=== PATIENT | male | born 1935 | race Caucasian/White ===

== ENCOUNTER 2019-05-31 15:59 | Inpatient (IN) | payer OTHER, MEDICAID ==
[~2019-05-31] VITALS: Ht 182.9 cm; Wt 43.1 kg
[2019-05-31 16:06] VITALS: BP_SYST 118
[2019-05-31 17:39] LABS: MONOCYTES # (AUTO) 0.6 K/uL (0.0-1.0); RED CELL DISTRIBUTION WIDTH 15.1 % (9.0-15.0); WHITE BLOOD COUNT (AUTO) 5.6 K/uL (4.8-10.8)
[2019-05-31 17:41] LABS: BILIRUBIN,URINE NEGATIVE (NEGATIVE); BLOOD, URINE 3+ (NEGATIVE); CLARITY/URINE CLOUDY (CLEAR); COLOR,URINE YELLOW (YELLOW); GLUCOSE,URINE NEGATIVE (NEGATIVE); KETONES,URINE TRACE (NEGATIVE); LEUKOCYTE ESTERASE ,URINE TRACE (NEGATIVE); NITRITE, URINE POSITIVE (NEGATIVE); PROTEIN URINE NEGATIVE (NEGATIVE)
[2019-05-31 17:45] LABS: BASOPHILS # (AUTO) 0.1 K/uL (0.0-0.2); EOSINOPHILS % (AUTO) 0.6 % (0.0-4.0); HEMATOCRIT 45.6 % (36-54); LYMPHOCYTES # (AUTO) 1.2 K/uL (1.0-5.5); LYMPHOCYTES % (AUTO) 22.2 % (20.5-51.5); MEAN CORPUSCULAR HEMOGLOBIN 30 pg (27-31); MEAN CORPUSCULAR HGB CONC 33 % (32-36); MEAN CORPUSCULAR VOLUME 92 fL (79.0-98.0); MONOCYTES % (AUTO) 10.4 % (1.7-9.3); NEUTROPHILS # (AUTO) 3.7 K/uL (1.8-7.7); NEUTROPHILS % (AUTO) 65.8 % (40.0-70.0); PLATELET COUNT (AUTO) 197 K/uL (130-430); RED BLOOD CELL COUNT(AUTO) 4.94 MIL/uL (4.2-6.2)
[2019-05-31 17:52] LABS: ANION GAP 6 (5-15); CHLORIDE 102 mmol/L (98-107); CREATININE 1.02 mg/dL (0.55-1.30); GLUCOSE 143 mg/dL (70-99); POTASSIUM 4.3 mmol/L (3.5-5.1); SODIUM SERUM 137 mmol/L (136-145); UREA NITROGEN, BLOOD 17 mg/dL (8-21)
[2019-05-31 17:58] LABS: ALANINE AMINOTRANSFERASE 253 U/L (12-78); ALBUMIN 2.8 g/dL (3.4-4.8); ASPARTATE AMINOTRANSFERASE 181 U/L (10-37); TOTAL BILIRUBIN 0.2 mg/dL (0.0-1.0)
[2019-05-31 18:06] LABS: BACTERIA,URINE FEW /HPF (None Seen); RBC,URINE 50-80 /HPF (0-3)
[2019-05-31 18:07] LABS: FINE GRANULAR CASTS,URINE 0-10 /LPF (None Seen); URINE AMORPHOUS URATE 3+ /HPF (None Seen)
[2019-05-31 18:08] LABS: MUCUS,URINE 2+ /LPF (None Seen)
[2019-05-31] MEDS ORDERED: cefTRIAXone 1 GM IVPB PREMIX 50 ML IV ONE (18:15)
[2019-05-31] MEDS ORDERED: MEMA10TA PO (18:16)
[2019-05-31] MEDS ORDERED: FAMO20TA8 PO (18:16)
[2019-05-31] MEDS ORDERED: DOCU-144 PO (18:16)
[2019-05-31] MEDS ORDERED: ACET325T53 PO (18:16)
[2019-05-31] MEDS ORDERED: DONE10TA44 PO (18:16)
[2019-05-31] MEDS ORDERED: CEFEPIME 1 GM in D5W 50 ML IV SCH ×4 (19:00)
[2019-05-31] MEDS ORDERED: MAG-AL HYDROX/SIMETH 30 ML UDC PO PRN (19:30)
[2019-05-31] MEDS ORDERED: MILK OF MAGNESIA 30 ML UDC PO PRN (19:30)
[2019-05-31] MEDS ORDERED: ACETAMINOPHEN 325 MG TABLET PO PRN (19:30)
[2019-05-31] MEDS ORDERED: ZOLPIDEM TARTRATE 5 MG TABLET PO PRN (19:30)
[2019-05-31] MEDS ORDERED: ONDANSETRON HCL 4 MG/2 ML VIAL IVP PRN (19:30)
[2019-05-31] MEDS ORDERED: IPRATROPIUM/ALBUTEROL SULFATE 3 ML AMPUL.NEB (DUONEB) INH PRN (19:30)
[2019-05-31] MEDS: CEFEPIME 1 GM in D5W 50 ML IV ONE (19:45)
[2019-05-31 20:36] VITALS: BP_SYST 173
[2019-05-31 21:15] VITALS: BP_SYST 173
[2019-05-31] MEDS: MEMANTINE HCL 5 MG TABLET PO SCH (22:17)
[2019-05-31] MEDS: DOCUSATE SODIUM 100 MG CAPSULE PO SCH (22:18)
[2019-05-31] MEDS: DONEPEZIL HCL 5 MG TABLET (ARICEPT) PO SCH (22:18)
[2019-05-31] MEDS: NACL 0.9% 1,000 ML IV SCH (22:18)
[2019-05-31] MEDS: HEPARIN SODIUM,PORCINE 5000 UNITS/ML VIAL SUBCUT SCH (22:20)
[2019-06-01] MEDS ORDERED: CEFEPIME 1 GM/VIAL (MAXIPIME) ONE (00:38)
[2019-06-01] MEDS: CEFEPIME 1 GM in D5W 50 ML IV ONE (01:07)
[2019-06-01 06:35] LABS: ALANINE AMINOTRANSFERASE 234 U/L (12-78); ALBUMIN 2.7 g/dL (3.4-4.8); ANION GAP 5 (5-15); ASPARTATE AMINOTRANSFERASE 153 U/L (10-37); CALCIUM 8.6 mg/dL (8.4-11.0); CHLORIDE 100 mmol/L (98-107); CREATININE 0.74 mg/dL (0.55-1.30); GLUCOSE 77 mg/dL (70-99); POTASSIUM 4.1 mmol/L (3.5-5.1); SODIUM SERUM 132 mmol/L (136-145); TOTAL BILIRUBIN 0.3 mg/dL (0.0-1.0); UREA NITROGEN, BLOOD 12 mg/dL (8-21)
[2019-06-01 07:14] LABS: BASOPHILS % (AUTO) 0.2 % (0.0-2.0); EOSINOPHILS % (AUTO) 0.4 % (0.0-4.0); HEMATOCRIT 44.2 % (36-54); HEMOGLOBIN 14.9 g/dL (14.0-18.0); LYMPHOCYTES # (AUTO) 1.1 K/uL (1.0-5.5); LYMPHOCYTES % (AUTO) 17.6 % (20.5-51.5); MEAN CORPUSCULAR HEMOGLOBIN 31 pg (27-31); MEAN CORPUSCULAR HGB CONC 34 % (32-36); MEAN CORPUSCULAR VOLUME 92 fL (79.0-98.0); MONOCYTES # (AUTO) 0.8 K/uL (0.0-1.0); MONOCYTES % (AUTO) 12.5 % (1.7-9.3); NEUTROPHILS # (AUTO) 4.4 K/uL (1.8-7.7); NEUTROPHILS % (AUTO) 69.3 % (40.0-70.0); PLATELET COUNT (AUTO) 218 K/uL (130-430); RED CELL DISTRIBUTION WIDTH 15.2 % (9.0-15.0); WHITE BLOOD COUNT (AUTO) 6.4 K/uL (4.8-10.8)
[2019-06-01 08:00] VITALS: BP_SYST 115
[2019-06-01] MEDS: NACL 0.9% 1,000 ML IV SCH ×2 (08:45→21:33)
[2019-06-01] MEDS: CEFEPIME 1 GM in D5W 50 ML IV SCH ×2 (08:45→21:34)
[2019-06-01] MEDS: HEPARIN SODIUM,PORCINE 5000 UNITS/ML VIAL SUBCUT SCH ×2 (08:51→21:41)
[2019-06-01] MEDS: DOCUSATE SODIUM 100 MG CAPSULE PO SCH ×2 (09:00→21:00)
[2019-06-01] MEDS: FAMOTIDINE 20 MG TABLET PO SCH (09:00)
[2019-06-01] MEDS: MEMANTINE HCL 5 MG TABLET PO SCH ×2 (09:00→21:00)
[2019-06-01 11:12] VITALS: BP_SYST 134
[2019-06-01] MEDS ORDERED: INSULIN REGULAR, HUMAN 100 UNITS/ML, 10 ML VIAL (humuLIN R) SUBCUT PRN (12:45)
[2019-06-01] MEDS ORDERED: DEXTROSE 50% JECT 50 ML DISP.SYRIN IVP PRN (12:45)
[2019-06-01] MEDS ORDERED: *PPN PER PHARMACY XX PRN (12:45)
[2019-06-01 15:35] VITALS: BP_SYST 133
[2019-06-01] MEDS: DONEPEZIL HCL 5 MG TABLET (ARICEPT) PO SCH (21:00)
[2019-06-02 00:13] VITALS: BP_SYST 150
[2019-06-02] MEDS: NACL 0.9% 1,000 ML IV SCH ×2 (08:50→21:20)
[2019-06-02] MEDS: FAMOTIDINE 20 MG TABLET PO SCH (09:00)
[2019-06-03] MEDS: FAMOTIDINE 20 MG TABLET PO SCH (09:00)
[2019-06-03] MEDS: NACL 0.9% 1,000 ML IV SCH ×2 (09:50→22:20)
[2019-06-03] MEDS ORDERED: fentaNYL CITRATE/PF 100 MCG/2 ML AMP ONE (15:24)
[2019-06-03] MEDS ORDERED: SIMETHICONE 40 MG/0.6 ML ML ONE (15:25)
[2019-06-03] MEDS ORDERED: MIDAZOLAM HCL 5 MG/5 ML VIAL ONE (15:25)
[2019-06-03 19:40] VITALS: BP_SYST 160
[2019-06-03] MEDS ORDERED: POTASSIUM CHLORIDE IV SCH ×9 (21:00)
[2019-06-03] MEDS ORDERED: SODIUM ACETATE IV SCH ×9 (21:00)
[2019-06-03] MEDS ORDERED: [UNRECOGNIZED DRUG - OTHER] IV SCH ×9 (21:00)
[2019-06-03] MEDS ORDERED: TPN PERIPHERAL IV SCH ×9 (21:00)
[2019-06-03] MEDS: DOCUSATE SODIUM 100 MG CAPSULE PO SCH (21:55)
[2019-06-03] MEDS: DONEPEZIL HCL 5 MG TABLET (ARICEPT) PO SCH (21:56)
[2019-06-03] MEDS: MEMANTINE HCL 5 MG TABLET PO SCH (21:56)
[2019-06-03] MEDS: HEPARIN SODIUM,PORCINE 5000 UNITS/ML VIAL SUBCUT SCH (21:59)
[2019-06-03] MEDS: CEFEPIME 1 GM in D5W 50 ML IV SCH (23:58)
[2019-06-04 01:50] VITALS: BP_SYST 165
[2019-06-04] MEDS: CEFEPIME 1 GM in D5W 50 ML IV SCH ×2 (09:14→20:56)
[2019-06-04] MEDS: DOCUSATE SODIUM 100 MG CAPSULE PO SCH ×2 (09:14→20:53)
[2019-06-04] MEDS: FAMOTIDINE 20 MG TABLET PO SCH (09:14)
[2019-06-04] MEDS: MEMANTINE HCL 5 MG TABLET PO SCH ×2 (09:16→20:53)
[2019-06-04] MEDS: HEPARIN SODIUM,PORCINE 5000 UNITS/ML VIAL SUBCUT SCH ×2 (09:17→20:59)
[2019-06-04 10:22] LABS: ALANINE AMINOTRANSFERASE 245 U/L (12-78); ALBUMIN 2.8 g/dL (3.4-4.8); ANION GAP 2 (5-15); ASPARTATE AMINOTRANSFERASE 197 U/L (10-37); CALCIUM 8.5 mg/dL (8.4-11.0); CHLORIDE 97 mmol/L (98-107); CREATININE 0.79 mg/dL (0.55-1.30); GLUCOSE 119 mg/dL (70-99); PHOSPHORUS 3.1 mg/dL (2.7-4.5); POTASSIUM 3.6 mmol/L (3.5-5.1); SODIUM SERUM 130 mmol/L (136-145); TOTAL BILIRUBIN 0.8 mg/dL (0.0-1.0); UREA NITROGEN, BLOOD 13 mg/dL (8-21)
[2019-06-04] MEDS: FAT EMULSIONS 250 ML IV SCH (11:00)
[2019-06-04] MEDS ORDERED: TPN PERIPHERAL IV SCH ×19 (11:11→21:00)
[2019-06-04] MEDS ORDERED: SODIUM CHLORIDE IV SCH ×19 (11:11→21:00)
[2019-06-04] MEDS ORDERED: [UNRECOGNIZED DRUG - OTHER] IV SCH ×9 (11:11)
[2019-06-04] MEDS ORDERED: POTASSIUM CHLORIDE IV SCH ×19 (11:11→21:00)
[2019-06-04 12:00] VITALS: BP_SYST 153
[2019-06-04] MEDS: NACL 0.9% 1,000 ML IV SCH (15:37)
[2019-06-04 17:33] VITALS: BP_SYST 167
[2019-06-04 19:50] VITALS: BP_SYST 164
[2019-06-04] MEDS: DONEPEZIL HCL 5 MG TABLET (ARICEPT) PO SCH (20:53)
[2019-06-04] MEDS ORDERED: [UNRECOGNIZED DRUG - OTHER] IV SCH ×10 (21:00)
[2019-06-05] MEDS: NACL 0.9% 1,000 ML IV SCH ×2 (00:36→11:20)
[2019-06-05 01:16] VITALS: BP_SYST 119
[2019-06-05] MEDS ORDERED: D5W 1,000 ML IV PRN ×2 (07:46→16:00)
[2019-06-05 08:00] VITALS: BP_SYST 120
[2019-06-05] MEDS ORDERED: DEXTROSE 50% JECT 50 ML DISP.SYRIN IVP PRN ×2 (08:00→16:00)
[2019-06-05] MEDS ORDERED: GLUCOSE 15 GM GEL (in 37.5 GM TUBE) PO PRN ×2 (08:00→16:00)
[2019-06-05] MEDS: FAMOTIDINE 20 MG TABLET PO SCH (08:22)
[2019-06-05] MEDS: DOCUSATE SODIUM 100 MG CAPSULE PO SCH ×2 (08:23→20:34)
[2019-06-05] MEDS: MEMANTINE HCL 5 MG TABLET PO SCH ×2 (08:23→20:34)
[2019-06-05 08:24] LABS: BASOPHILS % (AUTO) 0.2 % (0.0-2.0); HEMATOCRIT 49.9 % (36-54); HEMOGLOBIN 16.6 g/dL (14.0-18.0); LYMPHOCYTES # (AUTO) 0.6 K/uL (1.0-5.5); LYMPHOCYTES % (AUTO) 8.3 % (20.5-51.5); MEAN CORPUSCULAR HEMOGLOBIN 31 pg (27-31); MEAN CORPUSCULAR HGB CONC 33 % (32-36); MEAN CORPUSCULAR VOLUME 94 fL (79.0-98.0); MONOCYTES # (AUTO) 0.5 K/uL (0.0-1.0); MONOCYTES % (AUTO) 6.7 % (1.7-9.3); NEUTROPHILS % (AUTO) 84.8 % (40.0-70.0); PLATELET COUNT (AUTO) 180 K/uL (130-430); RED BLOOD CELL COUNT(AUTO) 5.32 MIL/uL (4.2-6.2); WHITE BLOOD COUNT (AUTO) 7.1 K/uL (4.8-10.8)
[2019-06-05] MEDS: HEPARIN SODIUM,PORCINE 5000 UNITS/ML VIAL SUBCUT SCH ×2 (08:24→20:39)
[2019-06-05 08:31] LABS: ALANINE AMINOTRANSFERASE 167 U/L (12-78); ALBUMIN 2.2 g/dL (3.4-4.8); ANION GAP 10 (5-15); ASPARTATE AMINOTRANSFERASE 138 U/L (10-37); CALCIUM 8.1 mg/dL (8.4-11.0); CHLORIDE 102 mmol/L (98-107); CREATININE 1.23 mg/dL (0.55-1.30); GLUCOSE 96 mg/dL (70-99); PHOSPHORUS 2.3 mg/dL (2.7-4.5); POTASSIUM 3.5 mmol/L (3.5-5.1); SODIUM SERUM 136 mmol/L (136-145); TOTAL BILIRUBIN 0.8 mg/dL (0.0-1.0); UREA NITROGEN, BLOOD 24 mg/dL (8-21)
[2019-06-05] MEDS ORDERED: DIATR MEGLU/DIATRIZ SOD 30 ML SOLUTION PO ONE (10:16)
[2019-06-05] MEDS: FAT EMULSIONS 250 ML IV SCH (11:00)
[2019-06-05] MEDS: CEFEPIME 1 GM in D5W 50 ML IV SCH ×2 (11:14→20:34)
[2019-06-05 11:37] VITALS: BP_SYST 90
[2019-06-05 16:31] VITALS: BP_SYST 113
[2019-06-05] MEDS: DONEPEZIL HCL 5 MG TABLET (ARICEPT) PO SCH (20:34)
[2019-06-05] MEDS ORDERED: TPN PERIPHERAL IV SCH ×10 (21:00)
[2019-06-05] MEDS ORDERED: POTASSIUM CHLORIDE IV SCH ×10 (21:00)
[2019-06-05] MEDS ORDERED: [UNRECOGNIZED DRUG - OTHER] IV SCH ×10 (21:00)
[2019-06-05] MEDS ORDERED: SODIUM CHLORIDE IV SCH ×10 (21:00)
[2019-06-05 22:00] VITALS: BP_SYST 150
[2019-06-06] VITALS: BP_SYST 141
[2019-06-06] MEDS: NACL 0.9% 1,000 ML IV SCH ×2 (04:51→16:58)
[2019-06-06 06:50] LABS: BASOPHILS # (AUTO) 0.1 K/uL (0.0-0.2); BASOPHILS % (AUTO) 0.4 % (0.0-2.0); EOSINOPHILS % (AUTO) 0.2 % (0.0-4.0); HEMOGLOBIN 14.7 g/dL (14.0-18.0); LYMPHOCYTES # (AUTO) 1.2 K/uL (1.0-5.5); MEAN CORPUSCULAR HEMOGLOBIN 31 pg (27-31); MEAN CORPUSCULAR HGB CONC 33 % (32-36); MEAN CORPUSCULAR VOLUME 93 fL (79.0-98.0); MONOCYTES % (AUTO) 4.5 % (1.7-9.3); NEUTROPHILS % (AUTO) 89.9 % (40.0-70.0); PLATELET COUNT (AUTO) 177 K/uL (130-430); RED BLOOD CELL COUNT(AUTO) 4.72 MIL/uL (4.2-6.2); RED CELL DISTRIBUTION WIDTH 15.2 % (9.0-15.0); WHITE BLOOD COUNT (AUTO) 23.3 K/uL (4.8-10.8)
[2019-06-06 06:54] LABS: ANION GAP 10 (5-15); CALCIUM 8.1 mg/dL (8.4-11.0); CHLORIDE 105 mmol/L (98-107); CREATININE 1.11 mg/dL (0.55-1.30); GLUCOSE 83 mg/dL (70-99); POTASSIUM 3.7 mmol/L (3.5-5.1); SODIUM SERUM 139 mmol/L (136-145); UREA NITROGEN, BLOOD 29 mg/dL (8-21)
[2019-06-06 06:55] LABS: ALANINE AMINOTRANSFERASE 130 U/L (12-78); ALBUMIN 1.9 g/dL (3.4-4.8); ASPARTATE AMINOTRANSFERASE 140 U/L (10-37); PHOSPHORUS 2.8 mg/dL (2.7-4.5); TOTAL BILIRUBIN 0.5 mg/dL (0.0-1.0)
[2019-06-06 07:45] VITALS: BP_SYST 159
[2019-06-06] MEDS: DOCUSATE SODIUM 100 MG CAPSULE PO SCH ×2 (08:39→21:52)
[2019-06-06] MEDS: CEFEPIME 1 GM in D5W 50 ML IV SCH (08:39)
[2019-06-06] MEDS: FAMOTIDINE 20 MG TABLET PO SCH (08:39)
[2019-06-06] MEDS: MEMANTINE HCL 5 MG TABLET PO SCH ×2 (08:40→21:54)
[2019-06-06] MEDS: HEPARIN SODIUM,PORCINE 5000 UNITS/ML VIAL SUBCUT SCH ×2 (08:42→22:09)
[2019-06-06 09:17] VITALS: BP_SYST 141
[2019-06-06 12:12] VITALS: BP_SYST 153
[2019-06-06] MEDS ORDERED: VANCOMYCIN HCL 1,000 MG in NS 250 ML IV SCH (16:00)
[2019-06-06 16:11] VITALS: BP_SYST 138
[2019-06-06] MEDS ORDERED: PIPERACILLIN/TAZOBACTAM 2.25 GM/ DEX-IS 50 ML PREMIX IV ONE (16:15)
[2019-06-06] MEDS ORDERED: FUROSEMIDE 20 MG/2 ML VIAL IVP ONE (16:45)
[2019-06-06] MEDS ORDERED: FUROSEMIDE 20 MG/2 ML VIAL ONE (16:55)
[2019-06-06] MEDS ORDERED: VANCOMYCIN HCL 750 MG in NS 250 ML IV SCH (18:00)
[2019-06-06 20:00] VITALS: BP_SYST 144
[2019-06-06] MEDS: ALBUTEROL SULFATE 0.083% 2.5 MG/3 ML VIAL.NEB INH SCH (20:06)
[2019-06-06] MEDS: IPRATROPIUM BROM 0.5 MG/2.5 ML VIAL.NEB (ATROVENT) INH SCH (20:06)
[2019-06-06] MEDS: PIPERACILLIN/TAZOBACTAM 2.25 GM/ DEX-IS 50 ML PREMIX IV SCH (21:52)
[2019-06-06] MEDS: DONEPEZIL HCL 5 MG TABLET (ARICEPT) PO SCH (21:53)
[2019-06-06] MEDS ORDERED: PIPERACILLIN/TAZO 4.5 GM in D5W 100 ML IV SCH (22:00)
[2019-06-07 00:45] VITALS: BP_SYST 152
[2019-06-07] MEDS: PIPERACILLIN/TAZOBACTAM 2.25 GM/ DEX-IS 50 ML PREMIX IV SCH ×3 (06:26→21:22)
[2019-06-07] MEDS: INSULIN REGULAR, HUMAN 100 UNITS/ML, 10 ML VIAL (humuLIN R) SUBCUT PRN ×3 (06:36→18:50)
[2019-06-07] MEDS: ALBUTEROL SULFATE 0.083% 2.5 MG/3 ML VIAL.NEB INH SCH ×4 (07:36→20:20)
[2019-06-07] MEDS: IPRATROPIUM BROM 0.5 MG/2.5 ML VIAL.NEB (ATROVENT) INH SCH ×4 (07:36→20:20)
[2019-06-07 07:54] LABS: BASOPHILS # (AUTO) 0.1 K/uL (0.0-0.2); BASOPHILS % (AUTO) 0.3 % (0.0-2.0); EOSINOPHILS % (AUTO) 0.1 % (0.0-4.0); HEMATOCRIT 42.8 % (36-54); HEMOGLOBIN 14.3 g/dL (14.0-18.0); LYMPHOCYTES # (AUTO) 0.5 K/uL (1.0-5.5); LYMPHOCYTES % (AUTO) 2.2 % (20.5-51.5); MEAN CORPUSCULAR HEMOGLOBIN 31 pg (27-31); MEAN CORPUSCULAR HGB CONC 33 % (32-36); MEAN CORPUSCULAR VOLUME 92 fL (79.0-98.0); MONOCYTES # (AUTO) 0.7 K/uL (0.0-1.0); MONOCYTES % (AUTO) 3.6 % (1.7-9.3); NEUTROPHILS # (AUTO) 19.3 K/uL (1.8-7.7); NEUTROPHILS % (AUTO) 93.8 % (40.0-70.0); PLATELET COUNT (AUTO) 155 K/uL (130-430); RED BLOOD CELL COUNT(AUTO) 4.65 MIL/uL (4.2-6.2); RED CELL DISTRIBUTION WIDTH 15.2 % (9.0-15.0); WHITE BLOOD COUNT (AUTO) 20.6 K/uL (4.8-10.8)
[2019-06-07 08:00] VITALS: BP_SYST 136
[2019-06-07 08:29] LABS: ALANINE AMINOTRANSFERASE 98 U/L (12-78); ALBUMIN 1.6 g/dL (3.4-4.8); ANION GAP 9 (5-15); ASPARTATE AMINOTRANSFERASE 107 U/L (10-37); CALCIUM 8.1 mg/dL (8.4-11.0); CHLORIDE 104 mmol/L (98-107); CREATININE 0.94 mg/dL (0.55-1.30); GLUCOSE 259 mg/dL (70-99); POTASSIUM 3.6 mmol/L (3.5-5.1); SODIUM SERUM 138 mmol/L (136-145); TOTAL BILIRUBIN 0.5 mg/dL (0.0-1.0); UREA NITROGEN, BLOOD 24 mg/dL (8-21)
[2019-06-07] MEDS: DOCUSATE SODIUM 100 MG CAPSULE PO SCH ×2 (08:31→21:17)
[2019-06-07] MEDS: FAMOTIDINE 20 MG TABLET PO SCH (08:32)
[2019-06-07] MEDS: MEMANTINE HCL 5 MG TABLET PO SCH ×2 (08:32→21:17)
[2019-06-07] MEDS: HEPARIN SODIUM,PORCINE 5000 UNITS/ML VIAL SUBCUT SCH ×2 (08:34→21:21)
[2019-06-07 12:14] VITALS: BP_SYST 117
[2019-06-07 16:07] VITALS: BP_SYST 122
[2019-06-07] MEDS: NACL 0.9% 1,000 ML IV SCH (18:48)
[2019-06-07] MEDS: VANCOMYCIN HCL 500 MG in NS 100 ML IV SCH (18:51)
[2019-06-07 20:00] VITALS: BP_SYST 130
[2019-06-07] MEDS: DONEPEZIL HCL 5 MG TABLET (ARICEPT) PO SCH (21:17)
[2019-06-08 02:04] VITALS: BP_SYST 137
[2019-06-08] MEDS: PIPERACILLIN/TAZOBACTAM 2.25 GM/ DEX-IS 50 ML PREMIX IV SCH ×3 (05:15→21:43)
[2019-06-08 06:21] LABS: BASOPHILS % (AUTO) 0.2 % (0.0-2.0); EOSINOPHILS # (AUTO) 0.1 K/uL (0.0-0.4); MEAN CORPUSCULAR VOLUME 92 fL (79.0-98.0); MONOCYTES # (AUTO) 1.5 K/uL (0.0-1.0); NEUTROPHILS % (AUTO) 87.1 % (40.0-70.0); WHITE BLOOD COUNT (AUTO) 19.1 K/uL (4.8-10.8)
[2019-06-08 06:34] LABS: EOSINOPHILS % (AUTO) 0.6 % (0.0-4.0); HEMATOCRIT 41.1 % (36-54); HEMOGLOBIN 13.8 g/dL (14.0-18.0); LYMPHOCYTES # (AUTO) 0.9 K/uL (1.0-5.5); LYMPHOCYTES % (AUTO) 4.5 % (20.5-51.5); MEAN CORPUSCULAR HEMOGLOBIN 31 pg (27-31); MEAN CORPUSCULAR HGB CONC 34 % (32-36); MONOCYTES % (AUTO) 7.6 % (1.7-9.3); NEUTROPHILS # (AUTO) 16.7 K/uL (1.8-7.7); PLATELET COUNT (AUTO) 146 K/uL (130-430); RED BLOOD CELL COUNT(AUTO) 4.48 MIL/uL (4.2-6.2); RED CELL DISTRIBUTION WIDTH 15.1 % (9.0-15.0)
[2019-06-08 06:45] LABS: ALANINE AMINOTRANSFERASE 78 U/L (12-78); ALBUMIN 1.6 g/dL (3.4-4.8); ANION GAP 7 (5-15); ASPARTATE AMINOTRANSFERASE 84 U/L (10-37); CHLORIDE 106 mmol/L (98-107); GLUCOSE 171 mg/dL (70-99); POTASSIUM 3.3 mmol/L (3.5-5.1); SODIUM SERUM 143 mmol/L (136-145); TOTAL BILIRUBIN 0.5 mg/dL (0.0-1.0); UREA NITROGEN, BLOOD 26 mg/dL (8-21)
[2019-06-08] MEDS: IPRATROPIUM BROM 0.5 MG/2.5 ML VIAL.NEB (ATROVENT) INH SCH ×4 (07:06→19:51)
[2019-06-08] MEDS: ALBUTEROL SULFATE 0.083% 2.5 MG/3 ML VIAL.NEB INH SCH ×4 (07:06→19:51)
[2019-06-08 08:00] VITALS: BP_SYST 123
[2019-06-08] MEDS: MEMANTINE HCL 5 MG TABLET PO SCH ×2 (09:13→21:43)
[2019-06-08] MEDS: DOCUSATE SODIUM 100 MG CAPSULE PO SCH ×2 (09:14→21:43)
[2019-06-08] MEDS: FAMOTIDINE 20 MG TABLET PO SCH (09:14)
[2019-06-08] MEDS: HEPARIN SODIUM,PORCINE 5000 UNITS/ML VIAL SUBCUT SCH ×2 (09:15→21:45)
[2019-06-08] MEDS ORDERED: POTASSIUM CHLORIDE 20 MEQ/PKT PACKET PO ONE (10:15)
[2019-06-08] MEDS ORDERED: POTASSIUM CHLORIDE 20 MEQ TAB.PRT.SR PO ONE (11:30)
[2019-06-08] MEDS: NACL 0.9% 1,000 ML IV SCH ×2 (12:53→23:56)
[2019-06-08 13:06] VITALS: BP_SYST 119
[2019-06-08 17:07] VITALS: BP_SYST 124
[2019-06-08] MEDS: VANCOMYCIN HCL 500 MG in NS 100 ML IV SCH (18:28)
[2019-06-08 20:00] VITALS: BP_SYST 122
[2019-06-08] MEDS: DONEPEZIL HCL 5 MG TABLET (ARICEPT) PO SCH (21:43)
[2019-06-08] MEDS: INSULIN REGULAR, HUMAN 100 UNITS/ML, 10 ML VIAL (humuLIN R) SUBCUT PRN (23:52)
[2019-06-09 01:28] VITALS: BP_SYST 143
[2019-06-09] MEDS: PIPERACILLIN/TAZOBACTAM 2.25 GM/ DEX-IS 50 ML PREMIX IV SCH ×3 (06:22→21:09)
[2019-06-09] MEDS: INSULIN REGULAR, HUMAN 100 UNITS/ML, 10 ML VIAL (humuLIN R) SUBCUT PRN ×2 (06:23→17:34)
[2019-06-09 06:28] LABS: ALANINE AMINOTRANSFERASE 72 U/L (12-78); ALBUMIN 1.6 g/dL (3.4-4.8); ANION GAP 2 (5-15); ASPARTATE AMINOTRANSFERASE 66 U/L (10-37); CALCIUM 7.9 mg/dL (8.4-11.0); CHLORIDE 112 mmol/L (98-107); CREATININE 1.12 mg/dL (0.55-1.30); GLUCOSE 165 mg/dL (70-99); POTASSIUM 4.1 mmol/L (3.5-5.1); SODIUM SERUM 144 mmol/L (136-145); TOTAL BILIRUBIN 0.5 mg/dL (0.0-1.0); UREA NITROGEN, BLOOD 26 mg/dL (8-21)
[2019-06-09 06:51] LABS: BASOPHILS % (AUTO) 0.2 % (0.0-2.0); EOSINOPHILS # (AUTO) 0.1 K/uL (0.0-0.4); EOSINOPHILS % (AUTO) 0.8 % (0.0-4.0); HEMATOCRIT 37.4 % (36-54); HEMOGLOBIN 12.4 g/dL (14.0-18.0); LYMPHOCYTES # (AUTO) 1.4 K/uL (1.0-5.5); LYMPHOCYTES % (AUTO) 10.6 % (20.5-51.5); MEAN CORPUSCULAR HEMOGLOBIN 31 pg (27-31); MEAN CORPUSCULAR HGB CONC 33 % (32-36); MEAN CORPUSCULAR VOLUME 92 fL (79.0-98.0); MONOCYTES # (AUTO) 1.9 K/uL (0.0-1.0); MONOCYTES % (AUTO) 14.8 % (1.7-9.3); NEUTROPHILS # (AUTO) 9.6 K/uL (1.8-7.7); NEUTROPHILS % (AUTO) 73.6 % (40.0-70.0); PLATELET COUNT (AUTO) 183 K/uL (130-430); RED BLOOD CELL COUNT(AUTO) 4.04 MIL/uL (4.2-6.2)
[2019-06-09 08:00] VITALS: BP_SYST 112
[2019-06-09] MEDS: MEMANTINE HCL 5 MG TABLET PO SCH ×2 (09:33→21:10)
[2019-06-09] MEDS: DOCUSATE SODIUM 100 MG CAPSULE PO SCH ×2 (09:33→21:10)
[2019-06-09] MEDS: FAMOTIDINE 20 MG TABLET PO SCH (09:33)
[2019-06-09] MEDS: HEPARIN SODIUM,PORCINE 5000 UNITS/ML VIAL SUBCUT SCH ×2 (09:36→21:12)
[2019-06-09] MEDS ORDERED: methylPREDNISolone SOD SUCC/PF 62.5 MG/ML VIAL IVP ONE (10:15)
[2019-06-09 10:26] LABS: ANION GAP 9 (5-15); CHLORIDE 103 mmol/L (98-107); GLUCOSE 73 mg/dL (70-99); POTASSIUM 4.2 mmol/L (3.5-5.1); SODIUM SERUM 137 mmol/L (136-145)
[2019-06-09 10:28] LABS: CREATININE 0.95 mg/dL (0.55-1.30); UREA NITROGEN, BLOOD 16 mg/dL (8-21)
[2019-06-09 10:32] LABS: HEMOGLOBIN 14.7 g/dL (14.0-18.0); MEAN CORPUSCULAR HEMOGLOBIN 31 pg (27-31); MEAN CORPUSCULAR HGB CONC 33 % (32-36); MEAN CORPUSCULAR VOLUME 93 fL (79.0-98.0); PLATELET COUNT (AUTO) 229 K/uL (130-430); RED BLOOD CELL COUNT(AUTO) 4.74 MIL/uL (4.2-6.2); WHITE BLOOD COUNT (AUTO) 4.9 K/uL (4.8-10.8)
[2019-06-09 10:33] LABS: BASOPHILS % (AUTO) 0.3 % (0.0-2.0); EOSINOPHILS % (AUTO) 0.3 % (0.0-4.0); LYMPHOCYTES % (AUTO) 30.9 % (20.5-51.5); MONOCYTES % (AUTO) 13.3 % (1.7-9.3); NEUTROPHILS % (AUTO) 55.2 % (40.0-70.0)
[2019-06-09] MEDS: ALBUTEROL SULFATE 0.083% 2.5 MG/3 ML VIAL.NEB INH SCH ×3 (11:53→19:44)
[2019-06-09] MEDS: IPRATROPIUM BROM 0.5 MG/2.5 ML VIAL.NEB (ATROVENT) INH SCH ×3 (11:53→19:44)
[2019-06-09 12:20] VITALS: BP_SYST 98
[2019-06-09 16:21] VITALS: BP_SYST 113
[2019-06-09] MEDS: VANCOMYCIN HCL 500 MG in NS 100 ML IV SCH (17:32)
[2019-06-09 20:00] VITALS: BP_SYST 107
[2019-06-09 20:35] VITALS: BP_SYST 107
[2019-06-09] MEDS ORDERED: methylPREDNISolone SOD SUCC/PF 62.5 MG/ML VIAL IVP SCH (21:00)
[2019-06-09] MEDS: DONEPEZIL HCL 5 MG TABLET (ARICEPT) PO SCH (21:15)
[2019-06-25 16:21] LABS: ANION GAP 4 (5-15); CALCIUM 8.4 mg/dL (8.4-11.0); CHLORIDE 102 mmol/L (98-107); CREATININE 0.85 mg/dL (0.55-1.30); GLUCOSE 68 mg/dL (70-99); POTASSIUM 3.8 mmol/L (3.5-5.1); SODIUM SERUM 134 mmol/L (136-145); TOTAL BILIRUBIN 0.7 mg/dL (0.0-1.0); UREA NITROGEN, BLOOD 14 mg/dL (8-21)
[2019-06-25 16:22] LABS: ALANINE AMINOTRANSFERASE 242 U/L (12-78); ALBUMIN 2.6 g/dL (3.4-4.8); ASPARTATE AMINOTRANSFERASE 239 U/L (10-37)
[2019-06-25 16:23] LABS: PROTHROMBIN TIME 9.8 SECS (9.5-12.5)
[2019-06-25 16:24] LABS: BASOPHILS % (AUTO) 0.3 % (0.0-2.0); EOSINOPHILS % (AUTO) 0.5 % (0.0-4.0); HEMOGLOBIN 14.7 g/dL (14.0-18.0); LYMPHOCYTES % (AUTO) 22.7 % (20.5-51.5); MEAN CORPUSCULAR HEMOGLOBIN 31 pg (27-31); MEAN CORPUSCULAR HGB CONC 33 % (32-36); MEAN CORPUSCULAR VOLUME 93 fL (79.0-98.0); MONOCYTES % (AUTO) 14.5 % (1.7-9.3); NEUTROPHILS # (AUTO) 3.1 K/uL (1.8-7.7); PLATELET COUNT (AUTO) 194 K/uL (130-430); RED BLOOD CELL COUNT(AUTO) 4.75 MIL/uL (4.2-6.2); RED CELL DISTRIBUTION WIDTH 14.9 % (9.0-15.0)
[2019-06-25 16:25] LABS: LYMPHOCYTES # (AUTO) 1.1 K/uL (1.0-5.5); MONOCYTES # (AUTO) 0.7 K/uL (0.0-1.0)
[2019-06-25 16:28] LABS: ANION GAP 9 (5-15); CHLORIDE 103 mmol/L (98-107); GLUCOSE 73 mg/dL (70-99); POTASSIUM 4.2 mmol/L (3.5-5.1); SODIUM SERUM 137 mmol/L (136-145)
[2019-06-25 16:29] LABS: CREATININE 0.95 mg/dL (0.55-1.30); THYROID STIMULATING HORMONE 11.73 uIu/mL (0.34-4.82); UREA NITROGEN, BLOOD 16 mg/dL (8-21)
[2019-06-25 16:30] LABS: HEMOGLOBIN 14.7 g/dL (14.0-18.0); RED BLOOD CELL COUNT(AUTO) 4.74 MIL/uL (4.2-6.2); WHITE BLOOD COUNT (AUTO) 4.9 K/uL (4.8-10.8)
[2019-06-25 16:31] LABS: BASOPHILS % (AUTO) 0.3 % (0.0-2.0); EOSINOPHILS % (AUTO) 0.3 % (0.0-4.0); LYMPHOCYTES % (AUTO) 30.9 % (20.5-51.5); MEAN CORPUSCULAR HEMOGLOBIN 31 pg (27-31); MEAN CORPUSCULAR HGB CONC 33 % (32-36); MEAN CORPUSCULAR VOLUME 93 fL (79.0-98.0); MONOCYTES % (AUTO) 13.3 % (1.7-9.3); NEUTROPHILS % (AUTO) 55.2 % (40.0-70.0); PLATELET COUNT (AUTO) 229 K/uL (130-430)
== END 2019-06-09 22:36 | DRG 871 ==
LOC: SED 15:59 → STU 18:54
PROVIDERS: ADMIT Internal Medicine; ATTEND Internal Medicine
PROC: 0DH63UZ Insertion of Feeding Device into Stomach, Percutaneous Approach (ICD-10-PCS; principal; 2019-06-03)
DX: A41.9 Sepsis, unspecified organism (principal); S72.002A Fracture of unspecified part of neck of left femur, initial encounter for closed fracture; J96.00 Acute respiratory failure, unspecified whether with hypoxia or hypercapnia; N39.0 Urinary tract infection, site not specified; E87.2 Acidosis; Z68.1 Body mass index [BMI] 19.9 or less, adult; E86.0 Dehydration; F02.80 Dementia in other diseases classified elsewhere, unspecified severity, without behavioral disturbance, psychotic disturbance, mood disturbance, and anxiety; Y95 Nosocomial condition; R62.7 Adult failure to thrive; R13.10 Dysphagia, unspecified; N40.0 Benign prostatic hyperplasia without lower urinary tract symptoms; K31.7 Polyp of stomach and duodenum; J44.9 Chronic obstructive pulmonary disease, unspecified; I10 Essential (primary) hypertension; E03.9 Hypothyroidism, unspecified; F25.9 Schizoaffective disorder, unspecified; F41.9 Anxiety disorder, unspecified; F94.0 Selective mutism; G30.9 Alzheimer's disease, unspecified; Z78.1 Physical restraint status; Z79.899 Other long term (current) drug therapy
CPT/HCPCS: 36415; 36600; 43246; 71045; 76700-TC; 80048; 80053; 81000-TC; 82140-TC; 82803-TC; 82962; 83605; 83735-TC; 83880; 84100-TC; 84443-TC; 84484; 85025; 85610-TC; 85730-TC; 87040-TC; 87081; 87086; 92610-GN; 94640; 94760; 97110-GP; 97530-GP; 99285; G0378; J0610; J0692; J0696; J1644; J1940; J2250; J2405; J2543; J2930; J3010; J3370; J3475; J3480; J7030; J7050; J7060; J7131; J7613; Q9964